=== PATIENT | male | born 1965 ===

== ENCOUNTER 2019-10-03 21:35 | Emergency (ER) | payer BC ==
[~2019-10-03] VITALS: Ht 167.6 cm; Wt 60.8 kg
[2019-10-03] MEDS ORDERED: LIPITOR20 MG (21:54)
== END 2019-10-03 22:43 | disposition home or self-care (01) ==
LOC: ER 21:35
DX: S81.812A Laceration without foreign body, left lower leg, initial encounter (principal); W54.0XXA Bitten by dog, initial encounter; Y93.89 Activity, other specified; Y92.832 Beach as the place of occurrence of the external cause; Y99.8 Other external cause status